=== PATIENT | female | born 1980 | race Hispanic/Latino ===

== ENCOUNTER 2016-03-21 02:07 | Emergency (ER) | payer OTHER ==
[2016-03-21] MEDS ORDERED: Ondansetron ODT 4 MG TAB ONE (02:35)
[2016-03-21 02:58] LABS: Bilirubin Negative (Negative); Blood, Urine Moderate (Negative); Glucose, Urine (Dipstick) Negative (Negative); Ketone, Urine Negative (Negative); Nitrite Negative (Negative); Protein, Urine (Dipstick) Negative (Neg-Trace); Urobilinogen 0.2 mg/dL (0.2-1.0)
[2016-03-21 03:05] LABS: Bacteria/HPF Rare-Few HPF (None Seen); Squamous Epithelial 0-3 HPF (0-3); WBC/HPF 0-3 HPF (0-3)
[2016-03-21 03:33] LABS: #Basophils 0.1 thou/uL (0.0-0.2); #Eosinphils 0.1 thou/uL (0.0-0.7); #Lymphocytes 2.1 thou/uL (1.20-3.40); #Monocytes 0.6 thou/uL (0.11-0.59); #Neutrophils 10.2 thou/uL (1.40-6.50); %Basophils 0.7 % (0.0-1.0); %Eosinophils 1.1 % (0.0-10.0); %Monocytes 4.6 % (0.0-10.0); Hematocrit 42.5 % (36.0-47.0); Mean Platelet Volume 8.1 fL (7.4-10.4); Red Blood Cell (RBC) Count 4.78 mill/uL (4.20-5.40); White Blood Cell (WBC) Count 13.2 thou/uL (4.8-10.8)
[2016-03-21 03:44] LABS: Anion Gap 15 mmol/L (10-20); BUN (Urea Nitrogen) 12 mg/dL (7.0-18.7); Calc. Creatinine Clearance 0 mL/min (70-130); Carbon Dioxide 17 mmol/L (22-29); Chloride 108 mmol/L (98-107); Estimated GFR-MDRD 75
[2016-03-21 03:45] LABS: ALT (SGPT) 27 U/L (0-55); AST (SGOT) 23 U/L (5-34); Alkaline Phosphatase 66 U/L (40-150); Bilirubin, Total 0.4 mg/dL (0.2-1.2); Calcium 8.9 mg/dL (7.8-10.44); Globulin 3.2 g/dL (2.4-3.5); Protein, Total 7.2 g/dL (6.0-8.3)
[2016-03-21] MEDS ORDERED: Ketorolac Tromethamine 30 MG/ML VIAL ONE (04:14)
[2016-03-21] MEDS ORDERED: metroNIDAZOLE 250 MG TAB ONE (05:18)
[2016-03-21] MEDS ORDERED: Ciprofloxacin 500 MG TAB ONE (05:18)
--- NOTE | 2016-03-21 05:41 | ERRECORD ---
[facility] EMERGENCY RECORD HPI UTI (02:31 WMEI) CHIEF COMPLAINT: Patient presents for evaluation of urinary tract infection signs or symptoms:, dysuria, frequency. HISTORIAN: History provided by patient. LOCATION: Symptoms are localized, most severe in the suprapubic region. QUALITY: Pain is dull in nature. TIME COURSE: Sudden onset of symptoms, 6, hours prior to arrival, There has been no change in the patient's symptoms over time. ASSOCIATED WITH FEMALE: No associated chills, No associated flank pain, No associated fever. EXACERBATED BY: Patient's condition exacerbated by nothing. RELIEVED BY: Patient's condition relieved by nothing. ROS (02:35 WMEI) CONSTITUTIONAL: Historian denies chills, denies fever. EYES: Historian denies eye pain, denies eye discharge. ENT: Historian denies rhinorrhea, denies sore throat. CARDIOVASCULAR: Historian denies chest pain, no radiation. RESPIRATORY: Historian denies cough, denies shortness of breath. GI: Historian reports abdominal pain, denies diarrhea, reports nausea, denies vomiting. GENITOURINARY FEMALE: Historian reports dysuria, reports frequency. MUSCULOSKELETAL: Historian denies joint redness, denies joint stiffness. SKIN: Historian denies skin changes, denies skin lesions. NEUROLOGIC: Historian denies confusion, denies mental status changes. ALLERGIC/IMMUNOLOGIC: Historian denies eczema, denies food allergies. PSYCHIATRIC: Historian denies alcohol abuse, denies drug abuse. PAST MEDICAL HISTORY MEDICAL HISTORY: Flu vaccine not up to date, Tetanus immunization up to date, Past medical history includes endocrine disease, hypothyroidism. (02:17 PGRI) Past medical history includes history of obesity. (02:38 WMEI) FEMALE SURGICAL HISTORY: Surgical history of section, Notes: X2, Surgical history of cholecystectomy, Surgical history of tonsillectomy. (02:17 PGRI) Surgical history of cholecystectomy, Surgical history of section. (02:38 WMEI) PSYCHIATRIC HISTORY: No previous psychiatric history. (02:17 PGRI) SOCIAL HISTORY: Patient has no smoking history, Patient denies alcohol use, Patient denies drug use. (02:17 PGRI) Patient denies alcohol use, Patient has no smoking history. (02:38 WMEI) &a-1R&a+25V*p+0X*[id number]*c202B*c15G*c2P*p-0X&a-25V&a+1R Name: Ana Rosa Carreno : 1980 F35 MedRec: [id number] AcctNum: [id number] Prepared: ThuMar 21, 2016 08:39 by Interface Page 1 of 3 pMD [facility] EMERGENCY RECORD KNOWN ALLERGIES No Known Drug Allergies CURRENT MEDICATIONS (02:20 PGRI) Synthroid: TABLET : Strength - 100 mcg : ORAL Patient Dose: 1 Oral once a day (in the morning). VITAL SIGNS VITAL SIGNS: BP: 115/76, Pulse: 107, Resp: 18 (Non-Labored), Temp: 98.0 (Oral), Pain: 5, O2 sat: 96 on Room Air, Time: 03/21/2016 02:15. (02:15 PGRI) BP: 122/92, Pulse: 85, Resp: 17, Pain: 2 (Constant), O2 sat: 97 on Room Air, Time: 03/21/2016 04:46. (04:46 CHOB) BP: 112/69, Pulse: 83, Resp: 18, Temp: 97.4, Pain: 2, O2 sat: 98 on RA, Time: 03/21/2016 05:35. (05:35 CHOB) PHYSICAL EXAM (02:36 WMEI) CONSTITUTIONAL: Vital signs reviewed, Patient appears non toxic, Patient alert and oriented to person, place and time. HEAD: Head exam included findings of head atraumatic, normocephalic. EYES: Conjunctiva normal, Sclera normal. ENT: Ear exam normal, Nose exam normal. NECK: Neck exam included findings of normal range of motion, Trachea midline. RESPIRATORY CHEST: Breath sounds clear, Chest exam included findings of chest movement symmetrical. CARDIOVASCULAR: Cardiovascular exam included findings of heart rate regular rate and rhythm, Heart sounds normal. ABDOMEN FEMALE: Abdominal exam included findings of abdomen tender, to the suprapubic region, no distension. BACK: Back exam included findings of normal inspection, range of motion normal, Costovertebral angle tenderness, on the left. UPPER EXTREMITY: Upper extremity exam included findings of inspection normal, Range of motion normal, Motor strength normal. LOWER EXTREMITY: Lower extremity exam included findings of inspection normal, Range of motion normal, Motor strength normal. NEURO: Jerson coma scale 15, Neuro exam findings include patient oriented to person, place and time, Speech normal, Gait normal. SKIN: Skin exam included findings of skin warm, dry, and normal in color. LYMPHATIC: Lymphatic exam normal. PSYCHIATRIC: Psychiatric exam included findings of patient oriented to person place and time, Normal affect, Judgment normal, Insight normal. RADIOLOGYINTERPRETATION (05:19 WMEI) TEST DESIGNER: Preliminary review of CT scans by, Radiologist, &a-1R&a+25V*p+0X*[id number]*c202B*c15G*c2P*p-0X&a-25V&a+1R Name: Ana Roas Carreno : 1980 F35 MedRec: [id number] AcctNum: [id number] Prepared: ThuMar 21, 2016 08:39 by Interface Page 2 of 3 pMD [facility] EMERGENCY RECORD DIVERTICULITIS NO ABSCESS OR PERFORATION. MEDICATION ADMINISTRATION SUMMARY Drug Name: Cipro tablet, Dose Ordered: 500 mg, Route: Oral, Status: Given, Time: 05:20 03/21/2016, Drug Name: Flagyl, Dose Ordered: 500 mg, Route: Oral, Status: Given, Time: 05:19 03/21/2016, Drug Name: *Toradol injection, Dose Ordered: 30 mg, Route: IV Push, Status: Given, Time: 04:16 03/21/2016, Drug Name: *ondansetron, Dose Ordered: 4 mg, Route: Sublingual, Status: Given, Time: 02:37 03/21/2016, *Additional information available in notes, Detailed record available in Medication Service section. PROBLEM LIST No recorded problems DIAGNOSIS (05:20 WMEI) FINAL: PRIMARY: DIVERTICULITIS. PRESCRIPTION Cipro tablet: TABLET : 500 mg : ORAL : Quantity: 1 Unit: tab(s) Route: ORAL Schedule: 2 times a day Dispense: 14 Unit: tab(s) May substitute. Refills: No Refills . (05:17 WMEI) NOTES: No refills. (05:17 WMEI) Flagyl: TABLET : 500 mg : ORAL : Quantity: 500 Unit: mg Route: ORAL Schedule: 3 times a day Dispense: 30 Unit: tab(s) May substitute. Refills: No Refills . (05:18 WMEI) NOTES: No refills. (05:18 WMEI) DISPOSITION PATIENT: Disposition Type: Discharge, Disposition: *Discharge Home. (05:20 WMEI) Patient left the department. (05:35 CHOB) Brand: CHOB=CASIMIRO Walton, Brie PGRI=CASIMIRO Dia, Jenny WMEI=DO Rasmussen William &a-1R&a+25V*p+0X*[id number]*c202B*c15G*c2P*p-0X&a-25V&a+1R Name: CarrenoAna Rosa arambula : 1980 F35 MedRec: [id number] AcctNum: [id number] Prepared: ThuMar 21, 2016 08:39 by Interface Page 3 of 3 pMD MTDD
--- NOTE | 2016-03-21 05:44 | PICIS ---
[facility] EMERGENCY RECORD TRIAGE (02:16 PGRI) TRIAGE NOTES: Suprapubic abdominal pain since 1999 tonight. Some nausea but no vomiting. Frequency when urinating. (02:16 PGRI) PATIENT: NAME: Ana Rosa Carreno, AGE: 35, GENDER: female, : Thu1980, TIME OF GREET: ThuMar 21, 2016 02:07, PREFERRED LANGUAGE: Montenegrin, ETHNICITY: Not or , ECODE BILLING MAP: [facility], SSN: [id number], Zip Code: [address], KG WEIGHT: 122.47, PHONE: , , , PERSON ID: [id number], PCP: Prabhu. (02:16 PGRI) COMPLAINT: Abdominal Pain. (02:16 PGRI) ADMISSION: URGENCY: 3 Urgent, ADMISSION SOURCE: Home, TRANSPORT: Walk-in, BED: TRIAGE. (02:16 PGRI) TRIAGE SCREENING: Patient denies suicidal ideation, Patient denies presence of domestic violence. (02:17 PGRI) PROVIDERS: TRIAGE NURSE: Jenny Dia RN. (02:16 PGRI) VITAL SIGNS: BP 115/76, Pulse 107, Resp 18, (Non-Labored), Temp 98.0, (Oral), Pain 5, O2 Sat 96, on Room Air, Time 03/21/2016 02:15. (02:15 PGRI) PREVIOUS VISIT ALLERGIES: No Known Drug Allergies. (02:16 PGRI) No Known Drug Allergies. (02:17 PGRI) KNOWN ALLERGIES No Known Drug Allergies CURRENT MEDICATIONS (02:20 PGRI) Synthroid: TABLET : Strength - 100 mcg : ORAL Patient Dose: 1 Oral once a day (in the morning). VITAL SIGNS VITAL SIGNS: BP: 115/76, Pulse: 107, Resp: 18 (Non-Labored), Temp: 98.0 (Oral), Pain: 5, O2 sat: 96 on Room Air, Time: 03/21/2016 02:15. (02:15 PGRI) BP: 122/92, Pulse: 85, Resp: 17, Pain: 2 (Constant), O2 sat: 97 on Room Air, Time: 03/21/2016 04:46. (04:46 CHOB) BP: 112/69, Pulse: 83, Resp: 18, Temp: 97.4, Pain: 2, O2 sat: 98 on RA, Time: 03/21/2016 05:35. (05:35 CHOB) NURSING ASSESSMENT: ABDOMEN (02:18 PGRI) CONSTITUTIONAL: Patient arrives ambulatory, Gait steady, History obtained from patient, Patient appears comfortable, Patient cooperative, Patient alert, Oriented to person, place and time, Skin warm, Skin, diaphoretic, Skin normal in color, Mucous membranes pink, Mucous membranes moist, Patient complains of suprapubic abd pain, patient arrives to ER c/o suprapubic abdominal pain since 1999 tonight after using the restroom "I thought it would go away but I can't sleep". some nausea but no vomiting. denies bowel changes. states frequency when urinating "I go every 15 &a-1R&a+25V*p+0X*y2060Q*c202B*c15G*c2P*p-0X&a-25V&a+1R Name: Ana Rosa Carreno : 1980 F35 MedRec: [id number] AcctNum: [id number] Prepared: ThuMar 21, 2016 08:43 by Interface Page 1 of 10 pMD [facility] EMERGENCY RECORD mins but I have been drinking a lot of water". diaphoretic upon arrival. RR even and unlabored A&OX4. PAIN: cramping pain, to the suprapubic region, intermittent "it goes from a 5 to a 10", on a scale 0-10 patient rates pain as 5, Nothing has been tried to alleviate the pain. ABDOMEN: Abdomen assessment findings include abdomen symmetrical, Abdomen soft, tender, suprapubic, Bowel sound normal, Associated with nausea, no associated vomiting, no associated diarrhea, no associated constipation, no associated weight change, no associated appetite change, no associated foreign travel. LMP: : 2, Para: 2, Patient denies , No control utilized, Patient denies currently lactating. GENITOURINARY FEMALE: Female genitourinary assessment findings include external genitalia normal, Associated with urinary complaints, frequency, no associated vaginal discharge, no associated vaginal bleeding, no associated vaginal foreign body, no associated complaints of painful intercourse, no urinary catheter present. SAFETY: Side rails up, Cart/Stretcher in lowest position, Family at bedside, Call light within reach, Hospital ID band on. NURSING ASSESSMENT: FALL RISK (05:14 PGRI) FALL RISK: Change in blood pressure (1), Total score 1. NURSING ASSESSMENT: SKIN (05:14 PGRI) SKIN: Skin assessment findings include skin warm, Skin dry, Skin normal in color, Inspection findings include: No pressure ulcer to the shoulder, Inspection findings include no pressure ulcer to the elbow, Inspection findings include no pressure ulcers to the hip, Inspection findings include no pressure ulcer to the sacrum, Inspection findings include no pressure ulcer to the heel, Inspection findings include no pressure ulcer, Inspection findings include no pressure ulcer. ELIAS SCALE: (3) Sensory perception slightly limited, (3) Skin is occasionally moist, (4) Patient walks frequently, (3) Slightly limited mobility, (3) Adequate nutrition, (2) Patient has potential problem moving, Elias Risk Total: 18. SAFETY: Side rails up, Cart/Stretcher in lowest position, Family at bedside, Call light within reach, Hospital ID band on. NURSING PROCEDURE: DISCHARGE NOTE (05:35 CHOB) DISCHARGE: Patient discharged to home, ambulating without assistance, family driving, accompanied by //partner, Patient requested and was provided an electronic copy of Discharge Instructions, Discharge instructions given to patient, Simple or moderate discharge teaching performed, by CASIMIRO MORENO, Prescriptions given and instructions on side effects given, Name of prescription(s) &a-1R&a+25V*p+0X*q5581T*c202B*c15G*c2P*p-0X&a-25V&a+1R Name: Ana Rosa Carreno : 1980 F35 MedRec: [id number] AcctNum: [id number] Prepared: ThuMar 21, 2016 08:43 by Interface Page 2 of 10 pMD [facility] EMERGENCY RECORD given: ORLANDO LÓPEZ, Vilma person(s) verbalized understanding of discharge instructions and follow-up care. BELONGINGS: Belongings and valuables with patient at time of discharge include:, Belongings remain with patient. SAFETY: Side rails up, Cart/Stretcher in lowest position, Family at bedside, Call light within reach, Hospital ID band on. VITAL SIGNS: BP: 112, / 69, Pulse: 83, Resp: 18, Temp: 97.4, Pain: 2, O2 sat: 98, on: RA. NURSING PROCEDURE: IV PATIENT IDENITIFIER: Patient actively involved in identification process, Patient's identity verified by patient stating name, Patient's identity verified by patient stating date. (03:15 CHOB) IV SITE 1: IV therapy indicated for hydration, IV therapy indicated for medication administration, IV therapy indicated for DIAGNOSTICS, IV established, to the right antecubital, using a 20 gauge catheter, in one attempt, IV site prepped with CHLORAPREP, Saline lock established, Flushed with normal saline (mls): 10, Labs drawn at time of placement, labeled in the presence of the patient and sent to lab, Notes: PT TOLERATED PROCEDURE WELL. (03:15 CHOB) FOLLOW-UP SITE 1: After procedure, sterile dressing applied, After procedure, IV line connections checked and properly labeled, IV discontinued, due to patient being discharged, catheter intact, Notes: BLEEDING CONTROLLED WITH COBAN. (05:30 CHOB) SAFETY: Side rails up, Cart/Stretcher in lowest position, Family at bedside, Call light within reach, Hospital ID band on. (03:15 CHOB) NURSING PROCEDURE: NURSE NOTES NURSES NOTES: Patient examined by physician, Notes: water given to patient in order to help provide urine sample. (02:31 PGRI) Notes: PT TO CT VIA W/C WITHOUT INCIDENT. (03:55 CHOB) NURSING PROCEDURE: URINE COLLECTION (02:51 PGRI) PATIENT IDENTIFIER: Patient actively involved in identification process, Patient's identity verified by patient stating name, Patient's identity verified by patient stating date. URINE COLLECTION FEMALE: Urine collected by void, output amount (mL) 30ml, urine yellow in color, and cloudy, Specimen labeled in the presence of the patient and sent to lab, Specimen obtained for culture labeled in the presence of the patient and sent to lab. SAFETY: Side rails up, Cart/Stretcher in lowest position, Family at bedside, Call light within reach, Hospital ID band on. ORDER DETAILS &a-1R&a+25V*p+0X*a3714P*c202B*c15G*c2P*p-0X&a-25V&a+1R Name: Ana Rosa Carreno : 1980 F35 MedRec: [id number] AcctNum: [id number] Prepared: ThuMar 21, 2016 08:43 by Interface Page 3 of 10 pMD [facility] EMERGENCY RECORD Order Name: CBC with Differential, Status: Active, Time: 03:08 03/21/2016, User: EI, - Ordered for: DO Rasmussen William, - Entered by: DO Rasmussen William - ThuMar 21, 2016 03:08, - Quantity: 1, Order Name: Comprehensive Metabolic Panel, Status: Active, Time: 03:08 03/21/2016, User: GRACIELA, - Ordered for: DO Rasmussen William, - Entered by: DO Rasmussen William - ThuMar 21, 2016 03:08, - Quantity: 1, Order Name: CT Abdomen Pelvis W Con, Status: Active, Time: 03:08 03/21/2016, User: GRACIELA, - Ordered for: DO Rasmussen William, - Entered by: DO Rasmussen William - ThuMar 21, 2016 03:08, - Quantity: 1, Order Name: Test, Urine (BHCG), Status: Active, Time: 03:09 03/21/2016, User: GRACIELA, - Ordered for: DO Rasmussen William, - Entered by: DO Rasmussen William - ThuMar 21, 2016 03:09, - Quantity: 1, Order Name: SALINE LOCK, Status: Done, Time: 03:10 03/21/2016, User: MARIA A, - Ordered for: DO Rasmussen William, - Entered by: DO Rasmussen William - ThuMar 21, 2016 03:08, - Quantity: 1, Order Name: Urinalysis w/ Rflx Microscopic, Status: Active, Time: 02:39 03/21/2016, User: GRACIELA, - Ordered for: DO Rasmussen William, - Entered by: DO Rasmussen William - ThuMar 21, 2016 02:39, - Quantity: 1, Order Name: Urinalysis w/ Rflx Microscopic, Status: Active, Time: 03:08 03/21/2016, User: WMEI, - Ordered for: DO Rasmussen William, - Entered by: DO Rasmussen William - ThuMar 21, 2016 03:08, - Quantity: 1. MEDICATION ADMINISTRATION SUMMARY Drug Name: Cipro tablet, Dose Ordered: 500 mg, Route: Oral, Status: Given, Time: 05:20 03/21/2016, Drug Name: Flagyl, Dose Ordered: 500 mg, Route: Oral, Status: Given, Time: 05:19 03/21/2016, Drug Name: *Toradol injection, Dose Ordered: 30 mg, Route: IV Push, Status: Given, Time: 04:16 03/21/2016, Drug Name: *ondansetron, Dose Ordered: 4 mg, Route: Sublingual, Status: Given, Time: 02:37 03/21/2016, *Additional information available in notes, Detailed record available in Medication Service section. MEDICATION SERVICE &a-1R&a+25V*p+0X*y0340F*c202B*c15G*c2P*p-0X&a-25V&a+1R Name: Ana Rosa Carreno : 1980 F35 MedRec: [id number] AcctNum: [id number] Prepared: ThuMar 21, 2016 08:43 by Interface Page 4 of 10 pMD [facility] EMERGENCY RECORD Cipro tablet: Order: Cipro tablet (ciprofloxacin HCl) - Dose: 500 mg : Oral Schedule: Now Ordered by: Mo Rasmussen DO Entered by: Mo Rasmussen DO ThuMar 21, 2016 05:16 Documented as given by: Brie Walton RN ThuMar 21, 2016 05:20 Patient, Medication, Dose, Route and Time verified prior to administration. Amount given: 500MG, Site: Medication administered P.O., Correct patient, time, route, dose and medication confirmed prior to administration, Patient advised of actions and side-effects prior to administration, Allergies confirmed and medications reviewed prior to administration, Patient in position of comfort, Side rails up, Cart in lowest position, Family at bedside, Call light in reach. Flagyl: Order: Flagyl (metronidazole) - Dose: 500 mg : Oral Schedule: Now Ordered by: Mo Rasmussen DO Entered by: Mo Rasmussen DO ThuMar 21, 2016 05:15 Documented as given by: Brie Walton RN ThuMar 21, 2016 05:19 Patient, Medication, Dose, Route and Time verified prior to administration. Amount given: 500MG, Site: Medication administered P.O., Correct patient, time, route, dose and medication confirmed prior to administration, Patient advised of actions and side-effects prior to administration, Allergies confirmed and medications reviewed prior to administration, Patient in position of comfort, Side rails up, Cart in lowest position, Family at bedside, Call light in reach. ondansetron: Order: ondansetron - Dose: 4 mg : Sublingual Notes: Generic ODT Ordered by: Mo Rasmussen DO Entered by: Mo Rasmussen DO ThuMar 21, 2016 02:35 Documented as given by: Jenny Dia RN ThuMar 21, 2016 02:37 Patient, Medication, Dose, Route and Time verified prior to administration. Site: Medication administered S.L., Patient appears Awake and alert- acceptable, Correct patient, time, route, dose and medication confirmed prior to administration, Patient advised of actions and side-effects prior to administration, Allergies confirmed and medications reviewed prior to administration, Patient in position of comfort, Side rails up, Cart in lowest position, Family at bedside, Call light in reach. : Follow Up : Response assessment performed, No signs or symptoms of allergic reaction noted, Decreased symptoms, Decreased nausea, Advised not to ambulate without assistance, Patient in position of comfort, Side rails up, Cart in lowest position, Family at bedside. (03:40 CHOB) Toradol injection: Order: Toradol injection (ketorolac tromethamine) - Dose: 30 mg : IV Push &a-1R&a+25V*p+0X*w0172A*c202B*c15G*c2P*p-0X&a-25V&a+1R Name: Ana Rosa Carreno : 1980 F35 MedRec: [id number] AcctNum: [id number] Prepared: ThuMar 21, 2016 08:43 by Interface Page 5 of 10 pMD [facility] EMERGENCY RECORD Schedule: Now Notes: Read back and verified, Verbal Order Ordered by: Mo Rasmussen DO Entered by: Brie Walton RN ThuMar 21, 2016 04:16 Documented as given by: Brie Walton RN ThuMar 21, 2016 04:16 Patient, Medication, Dose, Route and Time verified prior to administration. Amount given: 30MG, IV SITE #1 IVP, initial medication, Slowly, Line traced prior to administration, Catheter placement confirmed via flush prior to administration, IV site without signs or symptoms of infiltration during medication administration, No swelling during administration, No drainage during administration, IV flushed after administration, Correct patient, time, route, dose and medication confirmed prior to administration, Patient advised of actions and side-effects prior to administration, Allergies confirmed and medications reviewed prior to administration, Patient in position of comfort, Side rails up, Cart in lowest position, Family at bedside, Call light in reach, ABDOMINAL PAIN 09/08. Toradol injection: Response assessment performed, No signs or symptoms of allergic reaction noted, Decreased pain, Decreased symptoms, _IV SITE #1:_, Advised not to ambulate without assistance, Patient in position of comfort, Side rails up, Cart in lowest position, Family at bedside, Call light in reach, BP: 122, / 92, Pulse: 85, Resp: 17, Pain: 2, (Constant), O2 sat: 97, on Room Air. (04:46 CHOB) HPI UTI (02:31 WMEI) CHIEF COMPLAINT: Patient presents for evaluation of urinary tract infection signs or symptoms:, dysuria, frequency. HISTORIAN: History provided by patient. LOCATION: Symptoms are localized, most severe in the suprapubic region. QUALITY: Pain is dull in nature. TIME COURSE: Sudden onset of symptoms, 6, hours prior to arrival, There has been no change in the patient's symptoms over time. ASSOCIATED WITH FEMALE: No associated chills, No associated flank pain, No associated fever. EXACERBATED BY: Patient's condition exacerbated by nothing. RELIEVED BY: Patient's condition relieved by nothing. ROS (02:35 WMEI) CONSTITUTIONAL: Historian denies chills, denies fever. EYES: Historian denies eye pain, denies eye discharge. ENT: Historian denies rhinorrhea, denies sore throat. CARDIOVASCULAR: Historian denies chest pain, no radiation. RESPIRATORY: Historian denies cough, denies shortness of breath. GI: Historian reports abdominal pain, denies diarrhea, reports nausea, denies vomiting. GENITOURINARY FEMALE: Historian reports dysuria, &a-1R&a+25V*p+0X*q4850E*c202B*c15G*c2P*p-0X&a-25V&a+1R Name: Ana Rosa Carreno : 1980 F35 MedRec: [id number] AcctNum: [id number] Prepared: ThuMar 21, 2016 08:43 by Interface Page 6 of 10 pMD [facility] EMERGENCY RECORD reports frequency. MUSCULOSKELETAL: Historian denies joint redness, denies joint stiffness. SKIN: Historian denies skin changes, denies skin lesions. NEUROLOGIC: Historian denies confusion, denies mental status changes. ALLERGIC/IMMUNOLOGIC: Historian denies eczema, denies food allergies. PSYCHIATRIC: Historian denies alcohol abuse, denies drug abuse. PAST MEDICAL HISTORY MEDICAL HISTORY: Flu vaccine not up to date, Tetanus immunization up to date, Past medical history includes endocrine disease, hypothyroidism. (02:17 PGRI) Past medical history includes history of obesity. (02:38 WMEI) FEMALE SURGICAL HISTORY: Surgical history of section, Notes: X2, Surgical history of cholecystectomy, Surgical history of tonsillectomy. (02:17 PGRI) Surgical history of cholecystectomy, Surgical history of section. (02:38 WMEI) PSYCHIATRIC HISTORY: No previous psychiatric history. (02:17 PGRI) SOCIAL HISTORY: Patient has no smoking history, Patient denies alcohol use, Patient denies drug use. (02:17 PGRI) Patient denies alcohol use, Patient has no smoking history. (02:38 WMEI) PHYSICAL EXAM (02:36 WMEI) CONSTITUTIONAL: Vital signs reviewed, Patient appears non toxic, Patient alert and oriented to person, place and time. HEAD: Head exam included findings of head atraumatic, normocephalic. EYES: Conjunctiva normal, Sclera normal. ENT: Ear exam normal, Nose exam normal. NECK: Neck exam included findings of normal range of motion, Trachea midline. RESPIRATORY CHEST: Breath sounds clear, Chest exam included findings of chest movement symmetrical. CARDIOVASCULAR: Cardiovascular exam included findings of heart rate regular rate and rhythm, Heart sounds normal. ABDOMEN FEMALE: Abdominal exam included findings of abdomen tender, to the suprapubic region, no distension. BACK: Back exam included findings of normal inspection, range of motion normal, Costovertebral angle tenderness, on the left. UPPER EXTREMITY: Upper extremity exam included findings of inspection normal, Range of motion normal, Motor strength normal. LOWER EXTREMITY: Lower extremity exam included findings of inspection normal, Range of motion normal, Motor strength normal. NEURO: Waelder coma scale 15, Neuro exam findings include patient oriented to person, place and time, Speech normal, Gait normal. &a-1R&a+25V*p+0X*h6790G*c202B*c15G*c2P*p-0X&a-25V&a+1R Name: Ana Rosa Carreno : 1980 F35 MedRec: [id number] AcctNum: [id number] Prepared: ThuMar 21, 2016 08:43 by Interface Page 7 of 10 pMD [facility] EMERGENCY RECORD SKIN: Skin exam included findings of skin warm, dry, and normal in color. LYMPHATIC: Lymphatic exam normal. PSYCHIATRIC: Psychiatric exam included findings of patient oriented to person place and time, Normal affect, Judgment normal, Insight normal. EVENTS TRANSFER: Triage to Emergency Triage. (ThuMar 21, 2016 02:16 PGRI) Emergency Triage to Emergency Room -04. (02:17 PGRI) Removed from Emergency Emergency Room -04. (05:35 CHOB) RADIOLOGYINTERPRETATION (05:19 WMEI) [employer]YW[employer] WORKER: Preliminary review of CT scans by, Radiologist, DIVERTICULITIS NO ABSCESS OR PERFORATION. PROBLEM LIST No recorded problems DIAGNOSIS (05:20 WMEI) FINAL: PRIMARY: DIVERTICULITIS. DISPOSITION PATIENT: Disposition Type: Discharge, Disposition: *Discharge Home. (05:20 WMEI) Patient left the department. (05:35 CHOB) INSTRUCTION (05:20 WMEI) DISCHARGE: DIVERTICULITIS. SPECIAL: Follow-up with your PCP. PRESCRIPTION Cipro tablet: TABLET : 500 mg : ORAL : Quantity: 1 Unit: tab(s) Route: ORAL Schedule: 2 times a day Dispense: 14 Unit: tab(s) May substitute. Refills: No Refills . (05:17 WMEI) NOTES: No refills. (05:17 WMEI) Flagyl: TABLET : 500 mg : ORAL : Quantity: 500 Unit: mg Route: ORAL Schedule: 3 times a day Dispense: 30 Unit: tab(s) May substitute. Refills: No Refills . (05:18 WMEI) NOTES: No refills. (05:18 WMEI) IMAGING (05:37 CHOB) *DISCHARGE INSTRUCTIONS RECEIPT: Image captured from scanner. CT REPORT: Image captured from scanner. Page 2 added. Image captured from scanner. *SUPPLY CHARGE SHEET: Image captured from scanner. ADMIN (08:32 WMEI) &a-1R&a+25V*p+0X*f7649U*c202B*c15G*c2P*p-0X&a-25V&a+1R Name: Ana Rosa Carreno : 1980 F35 MedRec: [id number] AcctNum: [id number] Prepared: ThuMar 21, 2016 08:43 by Interface Page 8 of 10 pMD [facility] EMERGENCY RECORD DIGITAL SIGNATURE: DO Rasmussen William. RESULTS LABORATORY: CBC with Differential Collection DT: ThuMar 21, 2016 03:24, *White Blood Cell (WBC) Count 13.2 - H thou/uL, Range (4.8-10.8), Red Blood Cell (RBC) Count 4.78 mill/uL, Range (4.20-5.40), Hemoglobin 14.0 g/dL, Range (12.0-16.0), Hematocrit 42.5 %, Range (36.0-47.0), Mean Corpuscular Volume 88.8 fl, Range (81.0-99.0), Mean Corpuscular Hemoglobin 29.2 pg, Range (27.0-31.0), Mean Corpuscular HGB CONC 32.9 g/dL, Range (32.0-36.0), RBC Distribution Width 12.8 %, Range (11.5-14.5), Platelet Count 219 thou/uL, Range (130-400), Mean Platelet Volume 8.1 fL, Range (7.4-10.4), *%Neutrophils 77.5 - H %, Range (42.0-75.0), *%Lymphocytes 16.1 - L %, Range (21.0-51.0), %Monocytes 4.6 %, Range (0.0-10.0), %Eosinophils 1.1 %, Range (0.0-10.0), %Basophils 0.7 %, Range (0.0-1.0), *#Neutrophils 10.2 - H thou/uL, Range (1.40-6.50), #Lymphocytes 2.1 thou/uL, Range (1.20-3.40), *#Monocytes 0.6 - H thou/uL, Range (0.11-0.59), #Eosinphils 0.1 thou/uL, Range (0.0-0.7), #Basophils 0.1 thou/uL, Range (0.0-0.2). (03:35 CHOB) Test, Urine (BHCG) Collection DT: ThuMar 21, 2016 03:16, Test - Urine (BHCG) NEGATIVE , Range (NEGATIVE), Method of sensitivity- Indeterminant: results should be repeated, after 48 hours. Positive: results may be detected as early as 4-5 days before a first missed menses. Elimination of BHCG-, Elimination following first trimester D&C: 29-44 Days , Elimination following term : 8-24 Days , Specific [place] 1.019 , Range (1.002-1.036), A dilute urine specimen may, not contain telemarketing representative levels of hCG. If is still, suspected, a first morning urine specimen OR a random blood specimen should, be obtained from the patient 48-72 hours later and re-tested. , . (03:35 CHOB) Urine Microscopic Collection DT: ThuMar 21, 2016 02:55, RBC/HPF 4-6 HPF, Range (0-3), WBC/HPF 0-3 HPF, Range (0-3), &a-1R&a+25V*p+0X*n2831I*c202B*c15G*c2P*p-0X&a-25V&a+1R Name: Ana Rosa Carreno : 1980 F35 MedRec: [id number] AcctNum: [id number] Prepared: ThuMar 21, 2016 08:43 by Interface Page 9 of 10 pMD [facility] EMERGENCY RECORD Squamous Epithelial 0-3 HPF, Range (0-3), Bacteria/HPF Rare-Few HPF, Range (None Seen). (03:35 CHOB) Urinalysis w/ Rflx Microscopic Collection DT: ThuMar 21, 2016 02:55, Color Yellow , Range (Yellow), Clarity Hazy , Range (Clear), Specific [place], Urine 1.025 , Range (1.005-1.030), pH, Urine 6.0 , Range (5.0-9.0), Leukocyte Negative , Range (Negative), Nitrite Negative , Range (Negative), Protein, Urine (Dipstick) Negative mg/dL, Range (Neg-Trace), Glucose, Urine (Dipstick) Negative mg/dL, Range (Negative), Ketone, Urine Negative mg/dL, Range (Negative), Urobilinogen 0.2 mg/dL, Range (0.2-1.0), Bilirubin Negative , Range (Negative), *Blood, Urine Moderate - H , Range (Negative). (03:35 CHOB) Comprehensive Metabolic Panel Collection DT: ThuMar 21, 2016 03:24, Sodium 136 mmol/L, Range (136-145), Potassium 4.0 mmol/L, Range (3.5-5.1), *Chloride 108 - H mmol/L, Range (98-107), *Carbon Dioxide 17 - L mmol/L, Range (22-29), Anion Gap 15 mmol/L, Range (10-20), BUN (Urea Nitrogen) 12 mg/dL, Range (7.0-18.7), Creatinine 0.86 mg/dL, Range (0.6-1.1), Estimated GFR-MDRD 75 , Reference Range for Estimated GFR: Greater than 90, mL/min/1.73 m2 NOTE: The MDRD equation has not been validated for use, with the elderly (over 70 years of age), women, patients with, serious comorbid condition or persons with extremes of body size, muscle, mass, or nutritional status. , *Glucose 143 - H mg/dL, Range (70-105), Calcium 8.9 mg/dL, Range (7.8-10.44), Bilirubin, Total 0.4 mg/dL, Range (0.2-1.2), Protein, Total 7.2 g/dL, Range (6.0-8.3), NOTE: Plasma values are generally 0.3 to 0.5 g/dL higher than serum values, due to the presence of fibrinogen. , Albumin 4.0 g/dL, Range (3.5-5.0), Globulin 3.2 g/dL, Range (2.4-3.5), Alb/Glob Ratio 1.3 g/dL, Range (1.2-2.2), Alkaline Phosphatase 66 U/L, Range (40-150), AST (SGOT) 23 U/L, Range (5-34), ALT (SGPT) 27 U/L, Range (0-55). (03:55 MARIA A) Brand: BLANEB=CASIMIRO Walton, Brie PGRI=CASIMIRO Dia, Jenny WMEI=DO Rasmussen William &a-1R&a+25V*p+0X*h2233D*c202B*c15G*c2P*p-0X&a-25V&a+1R Name: Ana Rosa Carreno : 1980 F35 MedRec: [id number] AcctNum: [id number] Prepared: ThuMar 21, 2016 08:43 by Interface Page 10 of 10 pMD MTDD
--- NOTE | 2016-03-21 07:16 | CT ---
PRELIMINARY REPORT/[facility]/EMERGENCY AFTER HOURS PROCEDURE: EXAM: CT Abdomen and Pelvis With Intravenous Contrast. CLINICAL HISTORY: 35 years old, female; Pain; Abdominal pain; Localized; Lower; Prior surgery; Surgery date: 6+ months ; Surgery type: Cholecystectomy; Patient HX: Pt presents to the er for abdominal pain; Suprapubic ab dominal pain since 1999 tonight. Some nausea but no vomiting. Frequency when urinating. ; Additional info: iv contrast only per er md TECHNIQUE: Axial computed tomography images of the abdomen and pelvis with intravenous contrast. Coronal and sagittal reformatted images were created and reviewed. CONTRAST: 96 mL of ISOVUE 370 administered intravenously. COMPARISON: No relevant prior studies available. FINDINGS: Artifacts: Evaluation of the pelvis is limited due to streak artifacts. Lower thorax: Mild atelectasis is seen in the right lung base. ABDOMEN: Liver: Unremarkable. No mass. Gallbladder and bile ducts: Cholecystectomy clips are seen. No ductal dilation. Pancreas: Unremarkable. No mass. No ductal dilation. Spleen: Unremarkable. No splenomegaly. Adrenals: Unremarkable. No mass. Kidneys and ureters: A nonobstructing calculus measuring 2.4 mm is noted in the lower pole of the ri ght kidney. Stomach and bowel: Mild diverticulosis affecting the sigmoid and descending colon with surrounding f at stranding likely represents acute diverticulitis. No evidence of perforation or abscess. No obstr uction. Appendix: No findings to suggest acute appendicitis. PELVIS: Bladder: Unremarkable. No mass. Reproductive: Unremarkable as visualized. ABDOMEN and PELVIS: Intraperitoneal space: Unremarkable. No free air. No significant fluid collection. Bones/joints: Mild degenerative changes affects the spine. No acute fracture. No dislocation. Soft tissues: A surgical clip is noted in the anterior abdominal wall. Vasculature: Unremarkable. No abdominal aortic aneurysm. Lymph nodes: Unremarkable. No enlarged lymph nodes. IMPRESSION: 1. Mild diverticulosis affecting the sigmoid and descending colon with surrounding fat stranding lik li represents acute diverticulitis. No evidence of perforation or abscess. A colonoscopy is recomme nded to exclude malignancy after the acute episode has subsided. 2. Nonobstructing calculus measuring 2.4 mm in the lower pole of the right kidney. Thank you for allowing us to participate in the care of your patient. Dictated and Authenticated by: Ani Hutson MD 03/21/2016 5:10 AM Central Time ([place] \T\ [place]) FINAL REPORT CT ABDOMEN AND PELVIS WITH CONTRAST: Date: 03/21/[address] of the abdomen and pelvis was performed for evaluation of suprapubic pain with nausea. Axi al slices were acquired after giving IV contrast. Oral contrast was withheld by request. FINDINGS: The lung bases are clear. The liver and spleen are normal in size. The liver may be slightly low in density, but no focal lesi ons are seen. The pancreas and adrenal glands appear normal. There has been a prior cholecystectomy. The aorta is normal in size. No solid mass was seen in either kidney and there is no hydronephrosis . A tiny, nonobstructing calculus is seen in the lower pole of the right kidney. The major finding on this study is diverticulosis of the left colon with pericolonic inflammatory ch madhavi around the lower descending colon as it meets the sigmoid. The findings are consistent with div erticulitis. While there is considerable inflammatory change around the area, there is no focal absc ess or drainable fluid collection. The remainder of the colon showed no bowel wall thickening. There is no obstruction. The appendix appears normal. No free air is seen. CT of the pelvis showed no pelvic masses, free fluid, or inflammatory changes in the deep pelvis. Patient does have some degenerative changes in her lower lumbar spine. There is a left paracentral o steophyte at L5-S1 that could begin to be problematic. There is also evidence of facet arthritis beg inning, particularly at L4-L5. IMPRESSION: 1. Findings consistent with diverticulitis of the lower descending colon as it meets the sigmoid co gi. Mild diverticulosis elsewhere. This is rather unusual in such a young patient, so gastroenterol ogy referral for follow-up would be prudent. 2. Nonobstructing right renal calculus. Report in agreement with preliminary reading by Erica. POS: HOME
== END 2016-03-21 05:35 | disposition home or self-care (01) ==
LOC: BURERS 02:07
DX: K57.92 Diverticulitis of intestine, part unspecified, without perforation or abscess without bleeding (principal); E66.9 Obesity, unspecified; E03.9 Hypothyroidism, unspecified
CPT/HCPCS: 74177; 80053; 81003; 81015; 81025; 85025; 96374; J1885; Q0162

== ENCOUNTER 2016-08-19 01:23 | Emergency (ER) | payer OTHER ==
[2016-08-19 02:04] LABS: Bilirubin Negative (Negative); Blood, Urine Large (Negative); Clarity Cloudy (Clear); Glucose, Urine (Dipstick) Negative (Negative); Leukocyte Small (Negative); Nitrite Positive (Negative); Protein, Urine (Dipstick) > or equal to 300 mg/dL (Neg-Trace); Urobilinogen 0.2 mg/dL (0.2-1.0); pH, Urine 5.5 (5.0-9.0)
[2016-08-19 02:05] LABS: Specific Gravity, Urine 1.024 (1.002-1.036)
[2016-08-19 02:08] LABS: Pregnancy Test - Urine (BHCG) Negative (Negative); Pregu Control Background? CLEAR/WHITE (CLR/WHITE); Pregu Control Bar Appear? YES (CONTROL BAR); Specific Gravity 1.024 (1.002-1.036)
[2016-08-19 02:08] LABS: Bacteria/HPF 3+ HPF (None Seen); RBC/HPF GREATER THAN 50-TNTC HPF (0-3); Squamous Epithelial 0-3 HPF (0-3)
[2016-08-19 02:45] LABS: Anisocytosis SLIGHT = 6-15 cells (100X) (0-5/hpf); Band 6 % (5-11); Eosinophils 2 % (0-10); Hemoglobin 14.7 g/dL (12.0-16.0); Lymphocytes 22 % (21-51); MDiff Complete? YES; Mean Corpuscular HGB CONC 34.7 g/dL (32.0-36.0); Mean Corpuscular Hemoglobin 30.3 pg (27.0-31.0); Mean Corpuscular Volume 87.3 fl (81.0-99.0); Monocytes 4 % (0-10); Neutrophil 66 % (42-75); PLT Morphology Comment Appears Adequate; Platelet Count 240 thou/uL (130-400); RBC Distribution Width 13.1 % (11.5-14.5); Red Blood Cell (RBC) Count 4.85 mill/uL (4.20-5.40)
[2016-08-19] MEDS ORDERED: cefTRIAXone\\ROCEPHIN 1 GM VIAL ONE (03:10)
== END 2016-08-19 03:34 | disposition home or self-care (01) ==
LOC: BURERS 01:23
DX: N39.0 Urinary tract infection, site not specified (principal); E03.9 Hypothyroidism, unspecified; E66.9 Obesity, unspecified
CPT/HCPCS: 36415; 81003; 81015; 81025; 85025; 87040; 96372; J0696

== ENCOUNTER 2017-08-24 13:38 | Emergency (ER) | payer BC, OTHER ==
[2017-08-24] MEDS ORDERED: Mag-Al Plus 1200 MG/1200 MG/120 MG/30 ML UDCUP ONE (13:59)
[2017-08-24] MEDS ORDERED: Lidocaine Viscous Sol 2% 15 ml UD Cup ONE (13:59)
[2017-08-24] MEDS ORDERED: Ondansetron HCl/PF 4 MG/2 ML Vial ONE (14:01)
[2017-08-24] MEDS ORDERED: Ondansetron ODT 4 MG TAB ONE (14:01)
[2017-08-24 14:18] LABS: #Basophils 0.1 thou/uL (0.0-0.2); #Eosinphils 0.1 thou/uL (0.0-0.7); #Lymphocytes 2.1 thou/uL (1.20-3.40); #Monocytes 0.4 thou/uL (0.11-0.59); #Neutrophils 9.9 thou/uL (1.40-6.50); %Basophils 0.4 % (0.0-1.0); %Eosinophils 0.5 % (0.0-10.0); %Lymphocytes 16.7 % (21.0-51.0); %Neutrophils 79.3 % (42.0-75.0); Hemoglobin 13.2 g/dL (12.0-16.0); Mean Corpuscular HGB CONC 35.2 g/dL (32.0-36.0); Mean Corpuscular Hemoglobin 27.9 pg (27.0-31.0); Mean Corpuscular Volume 79.3 fL (78.0-98.0); Mean Platelet Volume 8.3 fL (7.4-10.4); Platelet Count 240 thou/uL (130-400); RBC Distribution Width 11.2 % (11.5-14.5); Red Blood Cell (RBC) Count 4.72 mill/uL (4.20-5.40); White Blood Cell (WBC) Count 12.4 thou/uL (4.8-10.8)
[2017-08-24 14:35] LABS: ALT (SGPT) 18 U/L (8-55); AST (SGOT) 21 U/L (5-34); Albumin 3.8 g/dL (3.5-5.0); Alkaline Phosphatase 59 U/L (40-150); Anion Gap 15 mmol/L (10-20); BUN (Urea Nitrogen) 6 mg/dL (7.0-18.7); Bilirubin, Total 0.3 mg/dL (0.2-1.2); CK (CPK) 57 U/L (29-168); Calc. Creatinine Clearance 0 mL/min (70-130); Calcium 9.3 mg/dL (7.8-10.44); Carbon Dioxide 20 mmol/L (22-29); Chloride 106 mmol/L (98-107); Estimated GFR-MDRD Greater than 90; Globulin 3.2 g/dL (2.4-3.5); Glucose 125 mg/dL (70-105); Lipase 18 U/L (8-78); Potassium 3.8 mmol/L (3.5-5.1); Sodium 137 mmol/L (136-145)
[2017-08-24 14:36] LABS: CKMB 0.5 ng/mL (0-6.6); Troponin I Less than 0.010 ng/mL (< 0.028)
[2017-08-24 15:38] LABS: Clarity Clear (Clear)
[2017-08-24 15:39] LABS: Bilirubin Negative (Negative); Blood, Urine Trace (Negative); Glucose, Urine (Dipstick) Negative (Negative); Leukocyte Negative (Negative); Nitrite Negative (Negative); Protein, Urine (Dipstick) Negative (Neg-Trace); Urobilinogen 0.2 mg/dL (0.2-1.0)
[2017-08-24 15:44] LABS: Bacteria/HPF 1+ HPF (None Seen); RBC/HPF 0-3 HPF (0-3); Squamous Epithelial 0-3 HPF (0-3); WBC/HPF 0-3 HPF (0-3)
--- NOTE | 2017-08-24 21:36 | RAD ---
CHEST TWO VIEWS: 08/24/2017 FINDINGS: The heart is normal in size, and the lungs are clear. No infiltrate or effusion is seen. The medias tinum appears normal. The trachea is midline. IMPRESSION: No acute thoracic findings. POS: HOME
== END 2017-08-24 16:27 | disposition home or self-care (01) ==
LOC: BURERS 13:38
DX: O09.512 Supervision of elderly primigravida, second trimester (principal); O21.9 Vomiting of pregnancy, unspecified; O99.89 Other specified diseases and conditions complicating pregnancy, childbirth and the puerperium; R07.9 Chest pain, unspecified; O99.282 Endocrine, nutritional and metabolic diseases complicating pregnancy, second trimester; E03.9 Hypothyroidism, unspecified; E66.9 Obesity, unspecified; Z3A.14 14 weeks gestation of pregnancy
CPT/HCPCS: 71046; 80053; 81003; 81015; 82553; 83690; 84484; 85025; 87086; 93005; 94760; 96361; 96374; J2405; Q0162

== ENCOUNTER 2021-08-04 19:01 | Emergency (ER) | payer OTHER ==
[2021-08-04] MEDS ORDERED: Iopamidol 370 76% 100 ML VIAL FS ONE (19:02)
[2021-08-04] MEDS ORDERED: Ondansetron PF 4 MG/2 ML Vial ONE (19:29)
[2021-08-04] MEDS ORDERED: Morphine 4 MG/ML VIAL ONE ×2 (19:29→21:34)
[2021-08-04 19:59] LABS: Hemoglobin 16.7 g/dL (12.0-16.0); Mean Corpuscular HGB CONC 34.6 g/dL (32.0-36.0); Mean Corpuscular Hemoglobin 29.4 pg (27.0-31.0); Mean Corpuscular Volume 85.1 fL (78.0-98.0); Mean Platelet Volume 9.3 fL (7.4-10.4); Platelet Count 292 thou/uL (130-400); RBC Distribution Width 12.1 % (11.5-14.5); Red Blood Cell (RBC) Count 5.66 mill/uL (4.20-5.40); White Blood Cell (WBC) Count 14.8 thou/uL (4.8-10.8)
[2021-08-04 20:22] LABS: ALT (SGPT) 53 U/L (8-55); AST (SGOT) 29 U/L (5-34); Albumin 4.3 g/dL (3.5-5.0); Alkaline Phosphatase 87 U/L (40-110); Anion Gap 20 mmol/L (10-20); BUN (Urea Nitrogen) 11 mg/dL (7.0-18.7); Bilirubin, Total 0.6 mg/dL (0.2-1.2); Calc. Creatinine Clearance 0 mL/min (70-130); Calcium 9.3 mg/dL (7.8-10.44); Carbon Dioxide 20 mmol/L (22-29); Chloride 102 mmol/L (98-107); Globulin 3.6 g/dL (2.4-3.5); Glucose 304 mg/dL (70-105); Potassium 3.8 mmol/L (3.5-5.1); Protein, Total 7.9 g/dL (6.0-8.3); Sodium 138 mmol/L (136-145)
[2021-08-04 20:47] LABS: Band 1 % (5-11); Lymphocytes 44 % (21-51); MDiff Complete? YES; Monocytes 9 % (0-10); Neutrophil 46 % (42-75); Platelet Morphology Comment Appears Adequate; RBC Morphology Normal
[2021-08-04 20:54] LABS: Bilirubin Negative (Negative); Blood, Urine Trace (Negative); Clarity Clear (Clear); Glucose, Urine (Dipstick) 500 mg/dL (Negative); Ketone, Urine 15 mg/dL (Negative); Leukocyte Negative (Negative); Nitrite Negative (Negative); Protein, Urine (Dipstick) Negative (Neg-Trace); Urobilinogen 0.2 mg/dL (Less than 2)
[2021-08-04 21:00] LABS: Bacteria/HPF Rare-Few HPF (None Seen); Mucous/LPF None Seen LPF (<2+); Squamous Epithelial 0-3 HPF (0-3); WBC/HPF 0-3 HPF (0-3)
[2021-08-04 21:11] LABS: Pregu Control Background? CLEAR/WHITE (CLR/WHITE); Pregu Control Bar Appear? YES (CONTROL BAR)
[2021-08-04 21:13] LABS: Pregnancy Test - Urine (BHCG) Negative (Negative)
== END 2021-08-04 21:51 | disposition home or self-care (01) ==
LOC: BURERS 19:01
DX: R10.31 Right lower quadrant pain (principal); E03.9 Hypothyroidism, unspecified; F17.210 Nicotine dependence, cigarettes, uncomplicated
CPT/HCPCS: 74177; 80053; 81003; 81015; 81025; 83880; 84484; 85025; 96361; 96374; 96375; 96376; J2270; J2405; Q9967

== ENCOUNTER 2021-08-06 08:49 | Emergency (ER) | payer OTHER ==
[2021-08-06 09:26] LABS: Hemoglobin 16.3 g/dL (12.0-16.0); Mean Corpuscular HGB CONC 33.8 g/dL (32.0-36.0); Mean Corpuscular Hemoglobin 29.2 pg (27.0-31.0); Mean Corpuscular Volume 86.3 fL (78.0-98.0); Platelet Count 233 thou/uL (130-400); RBC Distribution Width 12.4 % (11.5-14.5); Red Blood Cell (RBC) Count 5.57 mill/uL (4.20-5.40)
[2021-08-06 09:27] LABS: #Basophils 0.1 thou/uL (0.0-0.2); #Eosinphils 0.2 thou/uL (0.0-0.7); #Lymphocytes 3.3 thou/uL (1.20-3.40); #Monocytes 0.4 thou/uL (0.11-0.59); %Basophils 1.2 % (0.0-1.0); %Eosinophils 2.1 % (0.0-10.0); %Lymphocytes 36.9 % (21.0-51.0); %Monocytes 4.4 % (0.0-10.0); %Neutrophils 55.5 % (42.0-75.0); Mean Platelet Volume 9.1 fL (7.4-10.4)
[2021-08-06 09:36] LABS: Bilirubin Negative (Negative); Blood, Urine Moderate (Negative); Clarity Slightly Cloudy (Clear); Glucose, Urine (Dipstick) >=1000 mg/dL (Negative); Ketone, Urine 15 mg/dL (Negative); Leukocyte Negative (Negative); Nitrite Negative (Negative); Protein, Urine (Dipstick) Negative (Neg-Trace); Specific Gravity, Urine 1.025 (1.005-1.030); Urobilinogen 0.2 mg/dL (Less than 2)
[2021-08-06 09:40] LABS: Pregnancy Test - Urine (BHCG) Negative (Negative); Pregu Control Background? CLEAR/WHITE (CLR/WHITE); Pregu Control Bar Appear? YES (CONTROL BAR); Specific Gravity 1.025 (1.002-1.036)
[2021-08-06] MEDS ORDERED: Lidocaine Viscous Sol 2% 15 ml UD Cup ONE (09:41)
[2021-08-06] MEDS ORDERED: Mag-Al Plus 1200 MG/1200 MG/120 MG/30 ML UDCUP ONE (09:41)
[2021-08-06 09:42] LABS: Carbon Dioxide 22 mmol/L (22-29); Chloride 102 mmol/L (98-107); Potassium 4.5 mmol/L (3.5-5.1); Sodium 135 mmol/L (136-145)
[2021-08-06 09:43] LABS: ALT (SGPT) 56 U/L (8-55); AST (SGOT) 44 U/L (5-34); Albumin 4.2 g/dL (3.5-5.0); Alkaline Phosphatase 91 U/L (40-110); Anion Gap 16 mmol/L (10-20); BUN (Urea Nitrogen) 11 mg/dL (7.0-18.7); Bilirubin, Total 0.4 mg/dL (0.2-1.2); Calc. Creatinine Clearance 0 mL/min (70-130); Calcium 8.9 mg/dL (7.8-10.44); Globulin 3.3 g/dL (2.4-3.5); Glucose 316 mg/dL (70-105); Lipase 26 U/L (8-78); Protein, Total 7.5 g/dL (6.0-8.3)
[2021-08-06 09:47] LABS: RBC/HPF 0-3 HPF (0-3); WBC/HPF 0-3 HPF (0-3)
[2021-08-06 09:48] LABS: Bacteria/HPF 3+ HPF (None Seen); Yeast-Budding 1+ HPF (None Seen)
[2021-08-06] MEDS ORDERED: Insulin Regular 300 UNITS/3 ML VIAL ONE (09:54)
== END 2021-08-06 12:03 | disposition home or self-care (01) ==
LOC: BURERS 08:49
DX: R10.9 Unspecified abdominal pain (principal); E11.65 Type 2 diabetes mellitus with hyperglycemia; E03.9 Hypothyroidism, unspecified; F17.210 Nicotine dependence, cigarettes, uncomplicated; Z79.899 Other long term (current) drug therapy
CPT/HCPCS: 36416; 80053; 81003; 81015; 81025; 83690; 85025; 96361; 96374; J1815